=== PATIENT | male | born 1965 | race Caucasian/White ===

== ENCOUNTER → 2020-05-31 | Outpatient (CLI) | payer BC | LOC: ZCOL.LAB 16:24 | DX: U07.1 COVID-19 (principal) ==

== ENCOUNTER 2020-07-26 05:46 | Day surgery (SDC) | payer BC ==
[~2020-07-26] VITALS: Ht 177.8 cm; Wt 94.2 kg
[2020-07-26 06:24] VITALS: BP 116/73; PULSE 74; TEMP 97.7
[2020-07-26 07:45] VITALS: BP 117/82; PULSE 61
--- NOTE | 2020-07-26 07:45 | NUR ---
Patient brought back to [facility] via cart. Ambulated to chair with one assist. at bedside. Placed on monitors, vital signs stable. Patient is oriented. Denies pain or nausea. IV infusing to right hand without difficulty. Patient states he would like just juice at this time. Warm blanket provided, will continue a monitor.
[2020-07-26 08:00] VITALS: BP 124/79; PULSE 49
--- NOTE | 2020-07-26 08:00 | NUR ---
MD at bedside to explain results. Patient tolerating juice without difficulty. Will continue to monitor.
[2020-07-26 08:15] VITALS: BP 135/79; PULSE 55
--- NOTE | 2020-07-26 08:15 | NUR ---
Patient states he would like to go home at this time. Vital signs stable. IV removed, intact. Discharge instructions reviewed with patient and . Patient to get dressed at this time.
--- NOTE | 2020-07-26 08:22 | NUR ---
Patient brought down to lobby via wheel chair. Patient to be driven home by . All belongings in hand.
== END 2020-07-26 08:22 | disposition home or self-care (01) ==
LOC: SDCO 05:46
DX: Z12.11 Encounter for screening for malignant neoplasm of colon (principal); D12.5 Benign neoplasm of sigmoid colon; K57.30 Diverticulosis of large intestine without perforation or abscess without bleeding; K64.0 First degree hemorrhoids; K62.89 Other specified diseases of anus and rectum; Z86.010 Personal history of colon polyps
CPT/HCPCS: J2704; J7030